=== PATIENT | male | born 1960 | race Caucasian/White ===

== ENCOUNTER 2018-05-28 06:24 | Day surgery (SDC) | payer OTHER ==
[2018-05-26 15:52] VITALS: BMI 27.1
[~2018-05-28 06:24] MED LIST: ALPRAZolam 0.25 MG TAB PO PRN; ALPRAZolam 0.5 MG TAB PO PRN; ASPIRIN 325 MG TAB PO STA; ATORVASTATIN 80 MG TAB PO STA; NITROGLYCERIN SL TABS 0.4 MG TAB SUBLINGUAL PRN; SODIUM CHLORIDE 0.9% 1,000 ML in EMPTY BAG 1 BAG IV ONE
[2018-05-28] MEDS ORDERED: ACETAMINOPHEN TAB 325 MG TAB ONE (06:53)
[2018-05-28] MEDS ORDERED: SODIUM CHLORIDE 0.9% 1,000 ML IV ONE (07:00)
[2018-05-28 07:01] VITALS: RESP 16; TEMP 97.8
[2018-05-28 07:18] LABS: Anion Gap 8 mmol/L; Calcium 9.3 mg/dL (8.4-10.2); Carbon Dioxide 21 mmol/L (22-30); Chloride 112 mmol/L (98-107); Glucose 106 mg/dL (74-99); Sodium 141 mmol/L (137-145)
[2018-05-28 07:20] LABS: Blood Urea Nitrogen 13 mg/dL (9-20); Potassium 5.1 mmol/L (3.5-5.1)
[2018-05-28] MEDS ORDERED: LIDOCAINE 1% INJ 10MG/ML (20 ML MDV) ONE (07:23)
[2018-05-28] MEDS ORDERED: VERAPAMIL 2.5 MG/ML 2 ML AMP ONE (07:23)
[2018-05-28] MEDS ORDERED: HEPARIN SODIUM 1,000 UN/ML (10ML VL) ONE (07:27)
[2018-05-28 07:28] LABS: Basophils # (A) 0.1 k/uL (0-0.2); Basophils % (A) 1 %; Eosinophils # (A) 0.2 k/uL (0-0.7); Eosinophils % (A) 3 %; HCT 43.8 % (39.0-53.0); HGB 14.9 gm/dL (13.0-17.5); Lymphocytes # (A) 3.1 k/uL (1.0-4.8); Lymphocytes % (A) 34 %; MCH 32.5 pg (25.0-35.0); MCV 95.6 fL (80.0-100.0); Mean Platelet Volume 6.2; Monocytes # (A) 0.6 k/uL (0-1.0); Monocytes % (A) 7 %; Neutrophils % (A) 54 %; Platelet Count 269 k/uL (150-450); RBC 4.58 m/uL (4.30-5.90); RDW 12.7 % (11.5-15.5); WBC 9.2 k/uL (3.8-10.6)
[2018-05-28] MEDS ORDERED: MIDAZOLAM 2 MG/2 ML VIAL IV ONE ×2 (07:46→07:55)
[2018-05-28] MEDS ORDERED: fentaNYL (PF) 50 MCG/ML 2 ML AMP ONE (07:51)
[2018-05-28] MEDS ORDERED: LIDOCAINE 1% INJ 10MG/ML (20 ML MDV) SQ ONE (07:52)
[2018-05-28] MEDS ORDERED: fentaNYL (PF) 50 MCG/ML 2 ML AMP IV ONE (07:52)
[2018-05-28] MEDS: VERAPAMIL SYRINGE (5 MG/10 ML) INTRAARTER ONE ×2 (07:54→08:26)
[2018-05-28] MEDS: NITROGLYCERIN 1000MCG/10ML SYRINGE INTRACORON ONE ×2 (08:16→08:20)
[2018-05-28] MEDS ORDERED: ADENOSINE 90 MG in SODIUM CHLORIDE 0.9% 60 ML IVP ONE (08:16)
[2018-05-28] MEDS ORDERED: IOPAMIDOL-370 125ML BTL INJ ONE (08:26)
[2018-05-28] MEDS ORDERED: RX INFO: IV CONTRAST WAS GIVEN 1 EACH MISC MISCELLANE PRN (08:31)
[2018-05-28] MEDS ORDERED: SODIUM CHLORIDE 0.9% 1,000 ML IV SCH (08:45)
--- NOTE | 2018-05-28 09:02 | LTR ---
DATE OF SERVICE: 05/28/2018 RE: Vasquez Garcia Dear Dr. Hua; Mr. Vasquez Garcia underwent a heart catheterization and that revealed intermediate to severe disease involving the mid right coronary artery. I did perform fractional flow reserve on it and that came into be at 0.84, which is above the ischemic level. I did recommend maximized medical treatment at this point of time. No need for coronary artery stenting. I want to thank you for allowing us to participate in his care and please do not hesitate to call if you have any question or concern. Sincerely, MD AMBROSE Whittington / EHSANN: [phone] /
--- NOTE | 2018-05-28 09:14 | CC ---
CARDIAC CATHETERIZATION REPORT DATE OF SERVICE: May 28, 2018 PERFORMING PHYSICIAN: Rio Roblero MD, cream hauler. PROCEDURE PERFORMED: 1. Selective right and left coronary angiogram. 2. Left heart catheterization. 3. Fractional flow reserve FFR of the right coronary artery. INDICATION: This is a pleasant 57-year-old gentleman with hypertension, dyslipidemia, smoking, and significant family history of coronary artery disease who was experiencing chest discomfort concerning for angina. Because of that, he was scheduled to undergo a heart catheterization. APPROACH: Right radial artery. COMPLICATION: None. LEVEL OF SEDATION: Moderate with sedation length of 36 minutes. PROCEDURE DESCRIPTION: After obtaining an informed consent, the patient was brought to the cardiac labor and employment paralegal. The right radial artery was cannulated using micropuncture technique, the micropuncture wire passed easily then I placed a 6-[place] sheath in the right radial artery. After that I gave the patient 2 mg of verapamil IA and 10,000 units of heparin IV. I did after that performed selective right and left coronary angiogram using JR4 and JL3.5 catheters. Left heart catheterization was performed using the JR4 catheter which flipped into the LV then I did pullback across aortic valve after the catheter was flushed. After that I did fractional flow reserve FFR of the right coronary artery. Please see a separate paragraph for that. SELECTIVE CORONARY ANGIOGRAM: 1. The right coronary artery is a large caliber vessel and is a dominant vessel. The proximal right has mild disease only. The mid right has intermediate to severe lesion, appeared to be in the range of 60%. I perform an FFR on it and that came in to be 0.84. The RCA distally appeared to be angiographically normal. It bifurcates into PDA and PLV branches both are angiographically normal. 2. The left main is angiographically normal. It bifurcates into left circumflex and left anterior descending artery. 3. Left circumflex is a large caliber vessel and it is a nondominant vessel. The proximal circumflex is normal and gives rise into the first and second obtuse marginal branches both are angiographically normal. The mid circumflex seems to be normal and the circumflex distally is normal as well. 4. The LAD: The proximal LAD appeared to be angiographically normal. It gives rise into a large first diagonal branch which has an ostial lesion appeared to be in the range of 80% to 90%. The mid LAD has intermediate to severe lesion, appeared to be in the range of 50% to 60%. The LAD distally appeared to be angiographically normal. HEMODYNAMICS: The left ventricular end-diastolic pressure was 12 mmHg without significant gradient across the aortic valve. FFR OF THE RIGHT CORONARY ARTERY: I did initially check the ACT and that came into be more than 300. After zeroing the Doppler wire and equalizing between the Doppler wire and the guiding catheter which was JR4 guiding catheter, we did an FFR per IV adenosine infusion. The FFR came in to be at 0.84, which is nonischemic. At that point, the procedure was completed without any complication. CONCLUSION: 1. Intermediate 2-vessel coronary artery disease involving the mid right coronary artery and mid left anterior descending artery. 2. Severe disease involving the ostial of the first diagonal branch of the left anterior descending artery, which is a good sized diagonal. 3. Fractional flow reserve of the right coronary artery was performed and came in to be at 0.84. POSTPROCEDURE MANAGEMENT: 1. Maximize medical treatment. 2. Add aspirin to the current medical regimen. 3. Aggressive cholesterol control. 4. Continue oral nitrate. 5. Smoking cessation. 6. Advised to be compliant with medications. 7. Follow up with the patient. MMODL / IJN: [id number] /
[2018-05-28 13:08] VITALS: BP 112/62; PULSE 61
== END 2018-05-28 13:14 | disposition home or self-care (01) ==
LOC: CATHCVL 06:24
PROVIDERS: ATTEND Internal Medicine Interventional Cardiology
DX: I25.110 Atherosclerotic heart disease of native coronary artery with unstable angina pectoris (principal); E78.00 Pure hypercholesterolemia, unspecified; E78.5 Hyperlipidemia, unspecified; I10 Essential (primary) hypertension; F17.210 Nicotine dependence, cigarettes, uncomplicated; Z79.899 Other long term (current) drug therapy; Z82.49 Family history of ischemic heart disease and other diseases of the circulatory system
CPT/HCPCS: 93571; 93458; 85347; 80048; 85025; C1887; C1769; C1894; J2250; J2001; J3010; J0153; J1644; Q9967

== ENCOUNTER 2018-06-09 09:08 | Day surgery (SDC) | payer OTHER ==
[2018-06-07 11:44] VITALS: BMI 27.1
[2018-06-09] MEDS ORDERED: SODIUM CHLORIDE 0.9% 1,000 ML IV ONE (09:35)
[2018-06-09 09:53] VITALS: RESP 16
[2018-06-09 10:14] LABS: Basophils # (A) 0.1 k/uL (0-0.2); Basophils % (A) 1 %; Eosinophils # (A) 0.2 k/uL (0-0.7); Eosinophils % (A) 2 %; HCT 46.6 % (39.0-53.0); HGB 16.4 gm/dL (13.0-17.5); Lymphocytes % (A) 34 %; MCH 33.5 pg (25.0-35.0); MCHC 35.2 g/dL (31.0-37.0); MCV 95.1 fL (80.0-100.0); Mean Platelet Volume 6.5; Monocytes # (A) 0.5 k/uL (0-1.0); Monocytes % (A) 6 %; Neutrophils # (A) 4.8 k/uL (1.3-7.7); Neutrophils % (A) 54 %; Platelet Count 295 k/uL (150-450); RBC 4.91 m/uL (4.30-5.90); RDW 12.3 % (11.5-15.5); WBC 8.8 k/uL (3.8-10.6)
[2018-06-09 10:24] LABS: Anion Gap 8 mmol/L; Blood Urea Nitrogen 15 mg/dL (9-20); Calcium 9.6 mg/dL (8.4-10.2); Carbon Dioxide 23 mmol/L (22-30); Chloride 108 mmol/L (98-107); Glucose 102 mg/dL (74-99); Sodium 139 mmol/L (137-145)
[2018-06-09 10:28] LABS: Potassium 4.9 mmol/L (3.5-5.1)
[2018-06-09] MEDS ORDERED: MIDAZOLAM 2 MG/2 ML VIAL IV ONE (12:16)
[2018-06-09] MEDS ORDERED: LIDOCAINE 1% INJ 10MG/ML (20 ML MDV) SQ ONE (12:27)
[2018-06-09] MEDS ORDERED: MIDAZOLAM 2 MG/2 ML VIAL IVP ONE (12:28)
[2018-06-09] MEDS: HYDROmorphone 1 MG/ML 1 ML SYRINGE IVP ONE ×2 (12:29→12:56)
[2018-06-09] MEDS ORDERED: BIVALIRUDIN BOLUS 250 MG/50 ML IV ONE (12:30)
[2018-06-09] MEDS: NITROGLYCERIN 1000MCG/10ML SYRINGE INTRAARTER ONE ×5 (12:30→13:56)
[2018-06-09] MEDS: VERAPAMIL SYRINGE (5 MG/10 ML) INTRAARTER ONE ×2 (12:31→13:59)
[2018-06-09] MEDS ORDERED: BIVALIRUDIN 250 MG in SODIUM CHLORIDE 0.9% 50 ML IV ONE ×2 (12:34→13:20)
[2018-06-09] MEDS ORDERED: IOPAMIDOL-370 100ML BTL INJ ONE ×3 (13:05→13:59)
[2018-06-09] MEDS ORDERED: RX INFO: IV CONTRAST WAS GIVEN 1 EACH MISC MISCELLANE PRN (14:08)
[2018-06-09] MEDS ORDERED: SODIUM CHLORIDE 0.9% 1,000 ML IV SCH (14:15)
--- NOTE | 2018-06-09 15:04 | AN ---
ANGIOGRAPHY REPORT DATE OF SERVICE: 06/09/2018 PERFORMING PHYSICIAN: Rio Roblero MD, Contact Manager. PROCEDURE PERFORMED: 1. Selective right coronary angiogram. 2. Intracoronary injection of nitroglycerin. 3. Intravascular ultrasound IVUS of the left anterior descending artery. INDICATION: This is a pleasant 57-year-old gentleman with known history of hypertension and dyslipidemia, as well as a history of smoking, who was experiencing chest discomfort and underwent heart catheterization recently where he was found to have intermediate disease involving the mid right coronary artery and the FFR was performed on the RCA. At that point, came into be at 0.84. It was above the ischemic threshold. Also, he was found to have intermediate disease involving the mid LAD. Maximized medical treatment was advised, but the patient continues to have chest discomfort and because of that, he was brought today to undergo a PCI of the RCA and FFR of the LAD. APPROACH: Right radial artery. COMPLICATION: None. LEVEL OF SEDATION: Moderate with sedation length of 98 minutes. PROCEDURE DESCRIPTION: After obtaining an informed consent, the patient was brought to the cardiac slab lifting engineer. The right radial artery was cannulated using micropuncture technique, the micropuncture wire passed easily, then I placed a 6-[place] sheath in the right radial artery and anticoagulation with Angiomax was initiated. At that point, I did engage the right coronary artery using JR4 guide. I did selective right coronary angiogram which revealed that the intermediate lesion in the midportion was resolved completely, which likely was related to vasospasm to start with in the first place. I did have spasm again in the ostial right coronary artery, but it did respond nicely to IC nitroglycerin. Because of that, I decided to abort the intervention on the RCA. For the LAD, I did engage the left main using JL3.5 guide. The guide was pointing toward the left circumflex and because of that, I did change the guide into a JL3 guide. I did attempt doing an FFR of the LAD but the FFR wire will not go to the LAD because of the angulation and the takeoff of the LAD from the left main. Because of that, I decided to do an IVUS of the LAD. II advanced a whisper wire to the LAD and then I did intravascular ultrasound IVUS of the LAD, which did not reveal any significant plaque in the mid LAD. Because of that, I decided to not intervene on the LAD. CONCLUSION: 1. Coronary vasospasm involving the right coronary artery, responds nicely to IC nitroglycerin. 2. Myocardial bridging involving the mid LAD as well. POSTPROCEDURE MANAGEMENT: 1. I did recommend maximized medical treatment. 2. The patient did not tolerate oral nitrate and we will consider doing calcium channel obdulio instead. 3. Smoking cessation was also advised. 4. Follow up with the patient. MMODL / IJN: [id number] /
[2018-06-09] MEDS ORDERED: HYDROcodone/APAP 7.5-325MG 1 EACH TAB PO ONE (15:07)
[2018-06-09 20:02] VITALS: BP 131/77; PULSE 74; TEMP 98.2
== END 2018-06-09 20:00 | disposition home or self-care (01) ==
LOC: CATHCVL 09:08 → 1SOBS 14:03 → CATHCVL 20:00
PROVIDERS: ATTEND Internal Medicine Interventional Cardiology
DX: I20.1 Angina pectoris with documented spasm (principal); I10 Essential (primary) hypertension; F17.200 Nicotine dependence, unspecified, uncomplicated; E78.5 Hyperlipidemia, unspecified; Z82.49 Family history of ischemic heart disease and other diseases of the circulatory system; Z79.899 Other long term (current) drug therapy
CPT/HCPCS: 92978; 93454; 80048; 85025; C1769 ×4; C1887 ×4; C1753; C1894; J2250; J2001; J1170; J0583; Q9967

== ENCOUNTER 2019-09-28 06:56 | Emergency (ER) | payer OTHER ==
[2019-09-28] MEDS ORDERED: SODIUM CHLORIDE 0.9% 1,000 ML IV STA (07:13)
[2019-09-28] MEDS ORDERED: KETOROLAC 30 MG/ML 1 ML VIAL IVP STA (07:13)
--- NOTE | 2019-09-28 07:23 | ED ---
Abdominal Pain HPI - General Chief Complaint: Abdominal Pain Stated Complaint: abd pain Time Seen by Provider: 09/28/19 07:06 Source: patient, RN notes reviewed Mode of arrival: ambulatory Limitations: no limitations - History of Present Illness Initial Comments: This a 58-year-old male presents emergency Department chief complaint of left- sided abdominal discomfort. Patient states started yesterday. Patient states that he felt that he just pulled a muscle because he had pain with movement. Patient states that when he does not move around the pain was not present. Patient states though this morning around 4 AM the pain worsened. He says statu s in the left lower quadrant of his abdomen. Patient does have a history kidney stones but states it is not. Kidney stone. Patient denies any current nausea vomiting diarrhea constipation or melena hematochezia. Patient states he had a bowel movement this morning which is normal. He had a colonoscopy approximate 4 years ago with no acute findings. Patient states she has chronic back problems he spent pain medications but states it does not take any currently. Patient denies fever, chills, chest pain or shortness breath. He did have a heart cath last year. Patient has no complaints of dysuria hematuria. - Related Data Home Medications Medication Instructions Recorded Confirmed Lovastatin [Mevacor] 20 mg PO Q48H 05/26/18 06/09/18 Omeprazole 20 mg PO DAILY PRN 05/26/18 06/09/18 amLODIPine [Norvasc] 5 mg PO BID 05/26/18 06/09/18 Aspirin 325 mg PO DAILY 06/07/18 06/09/18 Allergies Allergy/AdvReac Type Severity Reaction Status Date / Time isosorbide AdvReac headache Verified 09/28/19 07:05 metoprolol tartrate AdvReac headache Uncoded 09/28/19 07:05 Review of Systems ROS Statement: Those systems with pertinent positive or pertinent negative responses have been documented in the HPI. ROS Other: All systems not noted in ROS Statement are negative. Past Medical History Past Medical History: Coronary Artery Disease (CAD), Hyperlipidemia, Hypertension Additional Past Medical History / Comment(s): hx kidney stones , 2 bulging disks History of Any Multi-Drug Resistant Organisms: None Reported Past Surgical History: Heart Catheterization Additional Past Surgical History / Comment(s): colonoscopy, endoscopy, stent for kidney stones/later removed Past Anesthesia/Blood Transfusion Reactions: No Reported Reaction Past Psychological History: No Psychological Hx Reported Smoking Status: Current every day smoker Past Alcohol Use History: Daily Past Drug Use History: Marijuana - Past Family History Father Family Medical History: Cancer Additional Family Medical History / Comment(s): chest Mother Family Medical History: Cancer Additional Family Medical History / Comment(s): breast General Exam Limitations: no limitations General appearance: alert, in no apparent distress, other (Vitals reviewed) Head exam: Present: atraumatic, normocephalic, normal inspection Eye exam: Present: normal appearance, PERRL, EOMI. Absent: scleral icterus, conjunctival injection, periorbital swelling ENT exam: Present: normal exam, normal oropharynx, mucous membranes moist Neck exam: Present: normal inspection, full ROM. Absent: tenderness, meningismus, lymphadenopathy Respiratory exam: Present: normal lung sounds bilaterally. Absent: respiratory distress, wheezes, rales, rhonchi, stridor Cardiovascular Exam: Present: regular rate, normal rhythm, normal heart sounds. Absent: systolic murmur, diastolic murmur, rubs, gallop, clicks GI/Abdominal exam: Present: soft, tenderness (Moderate left lower quadrant tenderness), normal bowel sounds. Absent: distended, guarding, rebound, rigid Back exam: Absent: CVA tenderness (R), CVA tenderness (L) Neurological exam: Present: alert, oriented X3 Skin exam: Present: warm, dry, intact, normal color. Absent: rash Course Vital Signs 09/28/19 07:02 Temperature 97.9 F Pulse Rate 76 Respiratory 16 Rate Blood Pressure 156/90 O2 Sat by Pulse 99 Oximetry Medical Decision Making - Medical Decision Making 58-year-old male presented for abdominal pain. CT, labs reviewed there is no significant findings. Patient's pain is worse with movement may related to muscular injury. Patient provided pain control emergency department. Patient feels that symptoms are improved. Patient will be discharged in stable condition with close follow-up return parameters were discussed. - Lab Data Result diagrams: 09/28/19 07:36 09/28/19 07:33 Lab Results 09/28/19 09/28/19 09/28/19 Range/Units 07:33 07:33 07:33 WBC (3.8-10.6) k/uL RBC (4.30-5.90) m/uL Hgb (13.0-17.5) gm/dL Hct (39.0-53.0) % MCV (80.0-100.0) fL MCH (25.0-35.0) pg MCHC (31.0-37.0) g/dL RDW (11.5-15.5) % Plt Count (150-450) k/uL Neutrophils % % Lymphocytes % % Monocytes % % Eosinophils % % Basophils % % Neutrophils # (1.3-7.7) k/uL Lymphocytes # (1.0-4.8) k/uL Monocytes # (0-1.0) k/uL Eosinophils # (0-0.7) k/uL Basophils # (0-0.2) k/uL Sodium 137 (137-145) mmol/L Potassium 4.3 (3.5-5.1) mmol/L Chloride 105 (98-107) mmol/L Carbon Dioxide 22 (22-30) mmol/L Anion Gap 10 mmol/L BUN 11 (9-20) mg/dL Creatinine 0.83 (0.66-1.25) mg/dL Est GFR (CKD-EPI)AfAm >90 (>60 ml/min/1.73 sqM) Est GFR (CKD-EPI)NonAf >90 (>60 ml/min/1.73 sqM) Glucose 102 H (74-99) mg/dL Plasma Lactic Acid Ra 1.6 (0.7-2.0) mmol/L Calcium 9.6 (8.4-10.2) mg/dL Total Bilirubin 0.6 (0.2-1.3) mg/dL AST 26 (17-59) U/L ALT 29 (4-49) U/L Alkaline Phosphatase 72 (38-126) U/L Total Protein 7.7 (6.3-8.2) g/dL Albumin 4.5 (3.5-5.0) g/dL Amylase 64 (30-110) U/L Lipase 102 (23-300) U/L Urine Color Colorless Urine Appearance Clear (Clear) Urine pH 7.5 (5.0-8.0) Ur Specific [place] 1.015 (1.001-1.035) Urine Protein Negative (Negative) Urine Glucose (UA) Negative (Negative) Urine Ketones Negative (Negative) Urine Blood Negative (Negative) Urine Nitrite Negative (Negative) Urine Bilirubin Negative (Negative) Urine Urobilinogen <2.0 (<2.0) mg/dL Ur Leukocyte Esterase Negative (Negative) 09/28/19 Range/Units 07:36 WBC 9.8 (3.8-10.6) k/uL RBC 4.86 (4.30-5.90) m/uL Hgb 16.2 (13.0-17.5) gm/dL Hct 47.1 (39.0-53.0) % MCV 96.9 (80.0-100.0) fL MCH 33.3 (25.0-35.0) pg MCHC 34.4 (31.0-37.0) g/dL RDW 12.7 (11.5-15.5) % Plt Count 311 (150-450) k/uL Neutrophils % 62 % Lymphocytes % 27 % Monocytes % 7 % Eosinophils % 1 % Basophils % 0 % Neutrophils # 6.1 (1.3-7.7) k/uL Lymphocytes # 2.7 (1.0-4.8) k/uL Monocytes # 0.7 (0-1.0) k/uL Eosinophils # 0.1 (0-0.7) k/uL Basophils # 0.0 (0-0.2) k/uL Sodium (137-145) mmol/L Potassium (3.5-5.1) mmol/L Chloride (98-107) mmol/L Carbon Dioxide (22-30) mmol/L Anion Gap mmol/L BUN (9-20) mg/dL Creatinine (0.66-1.25) mg/dL Est GFR (CKD-EPI)AfAm (>60 ml/min/1.73 sqM) Est GFR (CKD-EPI)NonAf (>60 ml/min/1.73 sqM) Glucose (74-99) mg/dL Plasma Lactic Acid Ra (0.7-2.0) mmol/L Calcium (8.4-10.2) mg/dL Total Bilirubin (0.2-1.3) mg/dL AST (17-59) U/L ALT (4-49) U/L Alkaline Phosphatase (38-126) U/L Total Protein (6.3-8.2) g/dL Albumin (3.5-5.0) g/dL Amylase (30-110) U/L Lipase (23-300) U/L Urine Color Urine Appearance (Clear) Urine pH (5.0-8.0) Ur Specific [place] (1.001-1.035) Urine Protein (Negative) Urine Glucose (UA) (Negative) Urine Ketones (Negative) Urine Blood (Negative) Urine Nitrite (Negative) Urine Bilirubin (Negative) Urine Urobilinogen (<2.0) mg/dL Ur Leukocyte Esterase (Negative) Disposition Clinical Impression: Abdominal pain Disposition: HOME SELF-CARE Condition: Stable Instructions (If sedation given, give patient instructions): Abdominal Pain (ED) Additional Instructions: Please return to the Emergency Department if symptoms worsen or any other concerns. Is patient prescribed a controlled substance at d/c from ED?: No Referrals: Maximo Hua MD [Primary Care Provider] - 1-2 days Time of Disposition: 08:10
[2019-09-28 07:54] LABS: Basophils % (A) 0 %; Eosinophils # (A) 0.1 k/uL (0-0.7); Eosinophils % (A) 1 %; HCT 47.1 % (39.0-53.0); HGB 16.2 gm/dL (13.0-17.5); Lymphocytes # (A) 2.7 k/uL (1.0-4.8); Lymphocytes % (A) 27 %; MCH 33.3 pg (25.0-35.0); MCHC 34.4 g/dL (31.0-37.0); MCV 96.9 fL (80.0-100.0); Mean Platelet Volume 6.4; Monocytes # (A) 0.7 k/uL (0-1.0); Monocytes % (A) 7 %; Neutrophils # (A) 6.1 k/uL (1.3-7.7); Neutrophils % (A) 62 %; Platelet Count 311 k/uL (150-450); RBC 4.86 m/uL (4.30-5.90); RDW 12.7 % (11.5-15.5); WBC 9.8 k/uL (3.8-10.6)
[2019-09-28 08:07] LABS: Appearance,Urine Clear (Clear); Bilirubin,Urine Negative (Negative); Blood,Urine Negative (Negative); Color,Urine Colorless; Glucose,Urine (UA) Negative (Negative); Ketones,Urine Negative (Negative); Leukocyte Esterase,Urine Negative (Negative); Nitrite,Urine Negative (Negative); PH, Urine 7.5 (5.0-8.0); Protein,Urine Negative (Negative); Specific Gravity,Urine 1.015 (1.001-1.035); Urobilinogen,Urine <2.0 mg/dL (<2.0)
--- NOTE | 2019-09-28 08:07 | CT ---
EXAMINATION TYPE: CT abdomen pelvis w con DATE OF EXAM: 09/28/2019 COMPARISON: None. HISTORY: LLQ pain CT DLP: 1385.8 mGycm, Automated Exposure Control for Dose Reduction was Utilized. CONTRAST: CT scan of the abdomen and pelvis is performed without oral but with IV Contrast, patient injected wi th 100 mL of Isovue 300. FINDINGS: LUNG BASES: No significant abnormality is appreciated. LIVER/GB: Liver is diffusely low dense relative to spleen suggesting diffuse fatty infiltration. PANCREAS: No significant abnormality is seen. SPLEEN: A few accessory tiny splenule near level of pancreatic tail. ADRENALS: No significant abnormality is seen. KIDNEYS: Symmetric cortical medullary uptake and excretion without hydronephrosis seen bilaterally. BOWEL: Suboptimal evaluation of bowel without enteric contrast. Stomach poorly distended and thus sub optimally evaluated. No suspicious small or large bowel dilatation. Normal-appearing appendix right l ower quadrant coronal image 53 from cecum. No significant diverticulosis or CT evidence for acute div erticulitis PROSTATE/SEMINAL VESICLES: Upper limits of normal in size with central calcification. LYMPH NODES: No greater than 1cm abdominal or pelvic lymph nodes are appreciated. OSSEOUS STRUCTURES: Prominence of epidural fat beginning superior L5 level. Some facet arthropathy lo wer lumbar levels. Mild to moderate axial joint space loss in both hips. OTHER: No significant additional abnormality is seen. IMPRESSION: No significant acute finding is seen to account for patient's clinical symptoms of left lower quadrant pain.
[2019-09-28 08:08] LABS: ALT 29 U/L (4-49); AST 26 U/L (17-59); African American GFR (CKD) >90 (>60 ml/min/1.73 sqM); Albumin 4.5 g/dL (3.5-5.0); Alkaline Phosphatase 72 U/L (38-126); Amylase 64 U/L (30-110); Anion Gap 10 mmol/L; Blood Urea Nitrogen 11 mg/dL (9-20); Calcium 9.6 mg/dL (8.4-10.2); Carbon Dioxide 22 mmol/L (22-30); Chloride 105 mmol/L (98-107); Glucose 102 mg/dL (74-99); Non-African American GFR(CKD) >90 (>60 ml/min/1.73 sqM); Potassium 4.3 mmol/L (3.5-5.1); Sodium 137 mmol/L (137-145); Total Bilirubin 0.6 mg/dL (0.2-1.3); Total Protein 7.7 g/dL (6.3-8.2)
[2019-09-28 08:28] VITALS: BP 149/79; PULSE 69; RESP 18; TEMP 98.2
== END 2019-09-28 08:26 | disposition home or self-care (01) ==
LOC: EC 06:56
DX: R10.9 Unspecified abdominal pain (principal); I25.10 Atherosclerotic heart disease of native coronary artery without angina pectoris; E78.5 Hyperlipidemia, unspecified; I10 Essential (primary) hypertension; F17.200 Nicotine dependence, unspecified, uncomplicated; Z79.899 Other long term (current) drug therapy; Z79.82 Long term (current) use of aspirin; Z88.8 Allergy status to other drugs, medicaments and biological substances
CPT/HCPCS: 36415; 80053; 82150; 83605; 83690; 85025; 81003; 74177; 99284; 96374; 96361; J1885; Q9967